=== PATIENT | male | born 1990 | race Caucasian/White ===

== ENCOUNTER 2019-06-07 18:47 | Emergency (ER) | payer BC ==
[2019-06-07 19:28] VITALS: PULSE 64
--- NOTE | 2019-06-07 19:34 | ED ---
General Adult HPI - General Chief complaint: Arrhythmia/Palpitations Stated complaint: defibrillator going off Time Seen by Provider: 06/07/19 18:56 Source: patient Mode of arrival: ambulatory Limitations: no limitations - History of Present Illness Initial comments: Dictation was produced using [employer] dictation software. please excuse any grammatical, word or spelling errors. Chief Complaint: 28-year-old male past medical history hypertrophic cardiomyopathy presents with buzzing noise coming from his AICD History of Present Illness: 28-year-old male he has past medical history of hypertrophic cardiomyopathy. Patient has AICDin 2010. Patient states that he heard his AICD making a buzzing noise. He states it lasted for couple seconds. When away. Patient then had another episode where he noted that there was a buzzing noise. Patient states he had some minor palpitations today. Patient has no complaints at this time. The ROS documented in this emergency department record has been reviewed and confirmed by me. Those systems with pertinent positive or negative responses have been documented in the HPI. All other systems are other negative and/or noncontributory. PHYSICAL EXAM: General Impression: Alert and oriented x3, not in acute distress HEENT: Normocephalic atraumatic, extra-ocular movements intact, pupils equal and reactive to light bilaterally, mucous membranes moist. Cardiovascular: Heart regular rate and rhythm, S1&S2 audible, no murmurs, rubs or gallops Chest: Lungs clear to auscultation bilaterally, no rhonchi, no wheeze, no rales Abdomen: Bowel sounds present, abdomen soft, non-tender, non-distended, no organomegaly Musculoskeletal: Pulses present and equal in all extremities, no peripheral edema Motor: no focal deficits noted Neurological: CN II-XII grossly intact, no focal motor or sensory deficits noted Skin: Intact with no visualized rashes Psych: Normal affect and mood ED course: 28-year-old male presents with buzzing noise coming from AICD. Upon arrival are within acceptable limits. No old EKG for comparison. EKG shows diffuse ST depressions. There is ST depression and high lateral and mid and lateral precordial leads. There is questionable ST elevations in V1 and V2 and lead 3. Patient has no chest pain, no shortness of breath no numbness tingling or paresthesias in the upper extremities or shoulders. EKG was concerning. Discussed patient case immediately with Dr. Villagran who reviewed the EKG. Dr. Villagran was able to track down an old EKG from his office. He states that his EKG is unchanged as secondary to his hypertrophic cardiomyopathy. No concern fo r ACS per cardiology. Laboratory evaluation obtained. CBC, coag panel, metabolic panel is unremarka ble. Troponin 0.015. X-rays nonacute. AICD was interrogated. Dr. Villagran was at bedside and evaluated patient. Dr. Villagran requested patient be discharged follow-up with his office. She'll observe the emergency room for couple hours with stable medical condition. He has no complete at this time. Patient understands that he should follow-up with solar fabrication technician. Return parameters discussed. EKG interpretation: Ventricular rate denies 72, normal sinus rhythm,. Interval 138, QS 98, QTc 446. There are T-wave inversions in high lateral leads, V3 to V6. - Related Data Home Medications Medication Instructions Recorded Confirmed Metoprolol Succinate [Toprol XL] 100 mg PO DAILY 11/17/14 11/20/14 Allergies Allergy/AdvReac Type Severity Reaction Status Date / Time No Known Allergies Allergy Verified 11/17/14 09:06 Review of Systems ROS Statement: Those systems with pertinent positive or pertinent negative responses have been documented in the HPI. ROS Other: All systems not noted in ROS Statement are negative. Past Medical History Additional Past Medical History / Comment(s): SEE DR VILLAGRAN H&P, Defibrillator placed 2010 History of Any Multi-Drug Resistant Organisms: None Reported Past Surgical History: AICD, Cardiac Ablation Past Anesthesia/Blood Transfusion Reactions: No Reported Reaction Type of Cardiac Device: AICD Device Placement Date:: 2010 Past Psychological History: No Psychological Hx Reported Smoking Status: Current every day smoker Past Alcohol Use History: Occasional Past Drug Use History: None Reported - Past Family History Brother(s) Family Medical History: Cancer Additional Family Medical History / Comment(s): TESTICULAR General Exam Limitations: no limitations Course Vital Signs 06/07/19 06/07/19 18:52 19:27 Temperature 98.2 F 97.6 F Pulse Rate 71 64 Respiratory 18 18 Rate Blood Pressure 150/82 136/88 O2 Sat by Pulse 98 98 Oximetry Medical Decision Making - Lab Data Result diagrams: 06/07/19 19:19 06/07/19 19:19 Lab Results 06/07/19 06/07/19 06/07/19 Range/Units 19:19 19:19 19:19 WBC 10.4 (3.8-10.6) k/uL RBC 5.38 (4.30-5.90) m/uL Hgb 16.3 (13.0-17.5) gm/dL Hct 47.2 (39.0-53.0) % MCV 87.8 (80.0-100.0) fL MCH 30.3 (25.0-35.0) pg MCHC 34.5 (31.0-37.0) g/dL RDW 12.0 (11.5-15.5) % Plt Count 221 (150-450) k/uL PT 11.0 (9.0-12.0) sec INR 1.0 (<1.2) APTT 26.5 (22.0-30.0) sec Sodium 140 (137-145) mmol/L Potassium 3.8 (3.5-5.1) mmol/L Chloride 106 (98-107) mmol/L Carbon Dioxide 27 (22-30) mmol/L Anion Gap 7 mmol/L BUN 12 (9-20) mg/dL Creatinine 0.96 (0.66-1.25) mg/dL Est GFR (CKD-EPI)AfAm >90 (>60 ml/min/1.73 sqM) Est GFR (CKD-EPI)NonAf >90 (>60 ml/min/1.73 sqM) Glucose 74 (74-99) mg/dL Calcium 9.4 (8.4-10.2) mg/dL Magnesium 1.8 (1.6-2.3) mg/dL Total Bilirubin 0.6 (0.2-1.3) mg/dL AST 28 (17-59) U/L ALT 29 (4-49) U/L Alkaline Phosphatase 68 (38-126) U/L Troponin I (0.000-0.034) ng/mL Total Protein 7.6 (6.3-8.2) g/dL Albumin 4.4 (3.5-5.0) g/dL 06/07/19 Range/Units 19:19 WBC (3.8-10.6) k/uL RBC (4.30-5.90) m/uL Hgb (13.0-17.5) gm/dL Hct (39.0-53.0) % MCV (80.0-100.0) fL MCH (25.0-35.0) pg MCHC (31.0-37.0) g/dL RDW (11.5-15.5) % Plt Count (150-450) k/uL PT (9.0-12.0) sec INR (<1.2) APTT (22.0-30.0) sec Sodium (137-145) mmol/L Potassium (3.5-5.1) mmol/L Chloride (98-107) mmol/L Carbon Dioxide (22-30) mmol/L Anion Gap mmol/L BUN (9-20) mg/dL Creatinine (0.66-1.25) mg/dL Est GFR (CKD-EPI)AfAm (>60 ml/min/1.73 sqM) Est GFR (CKD-EPI)NonAf (>60 ml/min/1.73 sqM) Glucose (74-99) mg/dL Calcium (8.4-10.2) mg/dL Magnesium (1.6-2.3) mg/dL Total Bilirubin (0.2-1.3) mg/dL AST (17-59) U/L ALT (4-49) U/L Alkaline Phosphatase (38-126) U/L Troponin I 0.015 (0.000-0.034) ng/mL Total Protein (6.3-8.2) g/dL Albumin (3.5-5.0) g/dL Disposition Clinical Impression: AICD problem Disposition: HOME SELF-CARE Condition: Good Instructions (If sedation given, give patient instructions): Heart Palpitations (ED) Is patient prescribed a controlled substance at d/c from ED?: No Referrals: Edilberto Villagran MD [STAFF PHYSICIAN] - 1-2 days Time of Disposition: 20:34
[2019-06-07 19:49] LABS: Partial Thromboplastin Time 26.5 sec (22.0-30.0)
--- NOTE | 2019-06-07 19:53 | XR ---
EXAMINATION TYPE: XR chest 2V DATE OF EXAM: 06/07/2019 COMPARISON: 10/11/2011 HISTORY: Dysrhythmia TECHNIQUE: FINDINGS: Heart and mediastinum are normal. Lungs are clear. Diaphragm is normal. Bony thorax is inta ct. There is a left axillary pacemaker with the lead tip in the right ventricle. There are chest lead s. IMPRESSION: No active cardiopulmonary disease. Normal heart. No change.
[2019-06-07 19:55] LABS: ALT 29 U/L (4-49); AST 28 U/L (17-59); African American GFR (CKD) >90 (>60 ml/min/1.73 sqM); Albumin 4.4 g/dL (3.5-5.0); Alkaline Phosphatase 68 U/L (38-126); Anion Gap 7 mmol/L; Blood Urea Nitrogen 12 mg/dL (9-20); Calcium 9.4 mg/dL (8.4-10.2); Carbon Dioxide 27 mmol/L (22-30); Chloride 106 mmol/L (98-107); Glucose 74 mg/dL (74-99); Magnesium 1.8 mg/dL (1.6-2.3); Non-African American GFR(CKD) >90 (>60 ml/min/1.73 sqM); Potassium 3.8 mmol/L (3.5-5.1); Sodium 140 mmol/L (137-145); Total Bilirubin 0.6 mg/dL (0.2-1.3); Total Protein 7.6 g/dL (6.3-8.2)
[2019-06-07 20:00] LABS: HCT 47.2 % (39.0-53.0); HGB 16.3 gm/dL (13.0-17.5); MCH 30.3 pg (25.0-35.0); MCHC 34.5 g/dL (31.0-37.0); MCV 87.8 fL (80.0-100.0); Mean Platelet Volume 7.5; Platelet Count 221 k/uL (150-450); RBC 5.38 m/uL (4.30-5.90); WBC 10.4 k/uL (3.8-10.6)
[2019-06-07 20:34] LABS: Eosinophils # (M) 0.52 k/uL (0-0.7); Lymphocytes # (M) 5.41 k/uL (1.0-4.8); Monocytes # (M) 0.21 k/uL (0-1.0); Neutrophils # (M) 4.26 k/uL (1.3-7.7); Neutrophils % (M) 41 %; Nucleated Red Blood Cells 0 /100 WBC (0-0); Reactive Lymphocytes Present; Total Cells Counted 100
[2019-06-07 20:55] VITALS: BP 134/89; RESP 20; TEMP 98
--- NOTE | 2019-06-08 13:44 | P.CRDCN ---
History of Present Illness History of present illness: This is Dr. REYEZ dictating a consult note on this patient Impression: Unexpected, abnormal sudden rise in high-voltage impedance of the ICD lead, transient Repeated measurements showed fluctuation in the high-voltage impedance from 78- 93 ohms At implant this was a 67 ohms Review of the trend of the impedances, high-voltage, shows a recent slow increase in now with the sudden spike, transient Pacing impedance is stable Pacing threshold and sensing stable No noise detection Chest x-ray did not show any obvious fracture of the lead Known hypertrophic adenopathy with mid LV obstruction and abnormal cardiac MRI with significant one room of delayed enhancement Status post ICD implantation many years back. ICD has been functioning normally so far Plan: The high impedance alarm has been turned off We will schedule a DFT cinefluoroscopy and venography early next week Continue beta blockers Patient was instructed that if he heard any other alarm he's come back to the [facility] immediately History of present illness: Patient had an alarm late this afternoon and it took him a while to realize that his ICD was beeping He came to the hospital to get this evaluated He has no chest discomfort no dizziness lightheadedness He does complain of brief palpitations but no loss of consciousness He did not have any ICD shocks Review of systems No fever chills or rigors No cough phlegm or expectoration No nausea vomiting or diarrhea No hematuria dysuria No muscular skeletal complaints No neurologic complaints No skin lesions On examination Vitals afebrile 98.0F, pulse rate in the 60s and 70s, normal respirations Blood pressure 134/89 mmHg pulse ox normal Breath sounds are clear no rhonchi no crackles no adventitious sounds Normal heart sounds normal S1 normal S2 no clear-cut audible murmur Abdomen soft nontender Extremity is warm edema No JVD Review of data ICD interrogation was performed. Sudden spike in the high voltage impedance to 200 ohms was detected Please see full ICD interrogation and reprogramming dictation Labs are reviewed hemoglobin 16.3, white count 10.4, platelet count 221 Sodium 140, potassium 3.8, BUN 12 and creatinine 0.96 Normal troponin Past Medical History Additional Past Medical History / Comment(s): SEE DR REYEZ H&P, Defibrillator placed 2010 History of Any Multi-Drug Resistant Organisms: None Reported Past Surgical History: AICD, Cardiac Ablation Past Anesthesia/Blood Transfusion Reactions: No Reported Reaction Type of Cardiac Device: AICD Device Placement Date:: 2010 Past Psychological History: No Psychological Hx Reported Smoking Status: Current every day smoker Past Alcohol Use History: Occasional Past Drug Use History: None Reported - Past Family History Brother(s) Family Medical History: Cancer Additional Family Medical History / Comment(s): TESTICULAR Medications and Allergies Home Medications Medication Instructions Recorded Confirmed Type Metoprolol Succinate [Toprol XL] 100 mg PO DAILY 11/17/14 11/20/14 History Allergies Allergy/AdvReac Type Severity Reaction Status Date / Time No Known Allergies Allergy Verified 11/17/14 09:06 Physical Exam Vitals: Vital Signs Temp Pulse Resp BP Pulse Ox 06/07/19 20:54 98.0 F 64 20 134/89 98 06/07/19 19:27 97.6 F 64 18 136/88 98 06/07/19 18:52 98.2 F 71 18 150/82 98 Intake and Output 06/07/19 06/08/19 06/08/19 22:59 06:59 14:59 Other: Weight 102.058 kg Results 06/07/19 19:19 06/07/19 19:19 Cardiac Enzymes 06/07/19 06/07/19 Range/Units 19:19 19:19 AST 28 (17-59) U/L Troponin I 0.015 (0.000-0.034) ng/mL Coagulation 06/07/19 Range/Units 19:19 PT 11.0 (9.0-12.0) sec APTT 26.5 (22.0-30.0) sec CBC 06/07/19 Range/Units 19:19 WBC 10.4 (3.8-10.6) k/uL RBC 5.38 (4.30-5.90) m/uL Hgb 16.3 (13.0-17.5) gm/dL Hct 47.2 (39.0-53.0) % Plt Count 221 (150-450) k/uL Comprehensive Metabolic Panel 06/07/19 Range/Units 19:19 Sodium 140 (137-145) mmol/L Potassium 3.8 (3.5-5.1) mmol/L Chloride 106 (98-107) mmol/L Carbon Dioxide 27 (22-30) mmol/L BUN 12 (9-20) mg/dL Creatinine 0.96 (0.66-1.25) mg/dL Glucose 74 (74-99) mg/dL Calcium 9.4 (8.4-10.2) mg/dL AST 28 (17-59) U/L ALT 29 (4-49) U/L Alkaline Phosphatase 68 (38-126) U/L Total Protein 7.6 (6.3-8.2) g/dL Albumin 4.4 (3.5-5.0) g/dL Intake and Output 06/07/19 06/08/19 06/08/19 22:59 06:59 14:59 Other: Weight 102.058 kg 06/07/19 19:19 06/07/19 19:19
--- NOTE | 2019-06-08 13:51 | P.PCN ---
Preoperative Diagnosis: He is a [employer] single-chamber ICD, protect RVR [id number] Battery voltage 2.91 Pacing impedance 418 ohms Defibrillation impedance 70 ohms but with repeat measurements it would range from 70-93 ohms R waves 10.5 mV Thresholds stable The high voltage impedance has shown a sudden spike up to 200 ohms resulting in activation of ICD alarm Variability in high-voltage impedance noted from 70-93 ohms Stable pacing impedances No noised ejection No inappropriate ICD shocks The high impedance alarm was turned off No further changes were made Plan DFT testing under anesthesia cinefluoroscopy and venography
== END 2019-06-07 20:54 | disposition home or self-care (01) ==
LOC: EC 18:47
DX: T82.897A Other specified complication of cardiac prosthetic devices, implants and grafts, initial encounter (principal); I42.2 Other hypertrophic cardiomyopathy; R94.31 Abnormal electrocardiogram [ECG] [EKG]; R00.2 Palpitations; F17.200 Nicotine dependence, unspecified, uncomplicated; Z79.899 Other long term (current) drug therapy; Z95.810 Presence of automatic (implantable) cardiac defibrillator; Z98.890 Other specified postprocedural states
CPT/HCPCS: 36415; 71046; 80053; 83735; 84484; 85025; 85610; 85730; 93005; 99285

== ENCOUNTER 2019-06-13 06:04 | Day surgery (SDC) | payer BC ==
[2019-06-11 11:26] VITALS: BMI 30.7
[2019-06-13] MEDS ORDERED: SODIUM CHLORIDE 0.9% 1,000 ML IV SCH (06:11)
[2019-06-13 06:32] VITALS: RESP 16; TEMP 98
[2019-06-13] MEDS ORDERED: PROPOFOL 10 MG/ML 20 ML VIAL IV ONE (07:18)
[2019-06-13] MEDS ORDERED: fentaNYL (PF) 50 MCG/ML 2 ML AMP ONE (07:18)
[2019-06-13] MEDS ORDERED: MIDAZOLAM 2 MG/2 ML VIAL ONE (07:18)
[2019-06-13] MEDS ORDERED: IOPAMIDOL-250 50ML BTL IV ONE (07:36)
[2019-06-13] MEDS ORDERED: SODIUM CHLORIDE 0.9% 500 ML IV ONE (08:00)
--- NOTE | 2019-06-13 08:55 | P.PCN ---
Preoperative Diagnosis: Diagnosis Abnormal ICD lead function Procedure Cinefluoroscopy of the ICD lead him a single coil was performed. No fractures no breaks noted on cinefluoroscopy Left upper extremity venogram 15 mL of dye injected in the left upper extremity. Patent axillary and left subclavian and innominate venous systems Defibrillation level test A shock and T wave protocol was used to induce ventricular fibrillation. This is adequately and appropriately detected at least sensitivity and successfully internally defibrillated with 10 J shock 10 J delivered, charge time 2 seconds, shocking impedance 68 ohms Interrogation of the electrograms revealed post shock noise in the can-RV coil electrograms. Noise is also detected during ventricular fibrillation The device was then programmed for VT and VF therapy sensitivity was reprogrammed to normal settings Along for the shocking impedance was turned off Plan Add a detailed discussion with the patient regarding the rising impedance. The shocking impedance fluctuate and we got one reading of 105 ohms. Recently shocking impedance is up to 200 ohms have been detected. This change i s recent and started in April I had a very detailed discussion with patient regarding the problem this ICD lead. This represents early failure of the l specifically for the shocking coil. In the long run this device comes unreliable and therefore a new ICD has to be implanted I discussed the options of implanting an internal ICD with a single coil versus a subcutaneous ICD The pros and cons of each were discussed in detail I would recommend implantation subcutaneous ICD but I would n remove his current ICD generator. I discussed the pros and cons of laser lead extraction. 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 I would like to leave this option open for the future and having a patent vein would be important in the long run in case of any future issues I will schedule a separate days ICD implant within the next one month At this time the defibrillator is functioning effectively
[2019-06-13 09:05] VITALS: BP 118/72; PULSE 65
== END 2019-06-13 09:05 | disposition home or self-care (01) ==
LOC: CATHEP 06:04
PROVIDERS: ATTEND Internal Medicine Clinical Cardiac Electrophysiology
DX: T82.190A Other mechanical complication of cardiac electrode, initial encounter (principal); I42.1 Obstructive hypertrophic cardiomyopathy; I47.1 Supraventricular tachycardia; I47.2 Ventricular tachycardia; I10 Essential (primary) hypertension; F17.210 Nicotine dependence, cigarettes, uncomplicated; Z79.899 Other long term (current) drug therapy; Z95.810 Presence of automatic (implantable) cardiac defibrillator; Z90.89 Acquired absence of other organs; Z96.22 Myringotomy tube(s) status
CPT/HCPCS: 93642; 75820; J2250; J3010; J2704; Q9966; 76000

== ENCOUNTER 2019-07-18 09:11 | Day surgery (SDC) | payer BC ==
[2019-07-16 09:47] VITALS: BMI 30.7
[~2019-07-18 09:11] MED LIST: LIDOCAINE 1% 20 ML VIAL (10MG/ML) FOR IV START INTRADERMA PRN; ceFAZolin 1,000 MG in SODIUM CHLORIDE 0.9% IRRIGATIO 250 ML IRRIGATION ONE
[2019-07-18] MEDS ORDERED: SODIUM CHLORIDE 0.9% 1,000 ML IV ONE (09:17)
[2019-07-18] MEDS ORDERED: ONDANSETRON 4 MG/2 ML VIAL ONE (10:09)
[2019-07-18] MEDS ORDERED: MIDAZOLAM 2 MG/2 ML VIAL ONE (10:09)
[2019-07-18] MEDS ORDERED: ROCURONIUM BROMIDE 10 MG/ML 5 ML VIAL IV ONE (10:09)
[2019-07-18] MEDS ORDERED: GLYCOPYRROLATE 0.2 MG/ML 2 ML VIAL ONE (10:09)
[2019-07-18] MEDS ORDERED: PROPOFOL 10 MG/ML 20 ML VIAL IV ONE (10:09)
[2019-07-18] MEDS ORDERED: DEXAMETHASONE SOD PHOS (MDV) 100 MG/10 ML VIAL ONE (10:09)
[2019-07-18] MEDS ORDERED: SUCCINYLCHOLINE CHLORIDE 100 MG/5 ML SYR IV ONE (10:09)
[2019-07-18] MEDS ORDERED: NEOSTIGMINE 1 MG/ML 10 ML VIAL ONE (10:09)
[2019-07-18] MEDS ORDERED: PHENYLEPHRINE-0.9% NACL SYG 1 MG/10 ML SYRINGE ONE (10:09)
[2019-07-18] MEDS ORDERED: fentaNYL (PF) 50 MCG/ML 2 ML AMP ONE (10:09)
[2019-07-18] MEDS ORDERED: LIDOCAINE 1% INJ 10MG/ML (20 ML MDV) ONE ×2 (10:47→10:48)
[2019-07-18] MEDS ORDERED: LIDOCAINE 1% INJ 10MG/ML (20 ML MDV) SQ ONE (11:34)
[2019-07-18] MEDS: LIDOCAINE 1% INJ 10MG/ML (20 ML MDV) SQ ONE ×2 (11:47→12:17)
[2019-07-18] MEDS ORDERED: ACETAMINOPHEN TAB 325 MG TAB PO PRN (13:29)
[2019-07-18] MEDS ORDERED: ACETAMINOPHEN IV (For NPO) 1,000 MG in EMPTY BAG 1 BAG IVPB ONE (13:29)
[2019-07-18] MEDS ORDERED: CALCIUM CARBONATE 500 MG CHEWABLE PO PRN (13:34)
[2019-07-18] MEDS: HYDROmorphone 1 MG/ML 1 ML SYRINGE IVP ONE ×2 (14:55→15:05)
[2019-07-18] MEDS: SODIUM CHLORIDE 0.9% 1,000 ML IV SCH (14:57)
[2019-07-18] MEDS: LACTATED RINGERS 1,000 ML IV SCH ×2 (15:14→16:32)
[2019-07-18] MEDS: HYDROcodone/APAP 5-325MG 1 EACH TAB PO PRN (16:46)
[2019-07-19] MEDS: SODIUM CHLORIDE 0.9% 1,000 ML IV SCH (03:54)
--- NOTE | 2019-07-19 05:54 | CE ---
CARDIAC ELECTROPHYSIOLOGY REPORT This is a 28-year-old male patient with known hypertrophic cardiomyopathy who has a single-chamber ICD, interval that was implanted many years back. He had a sudden increase in his shocking impedance to greater than 200 ohms and therefore a subcutaneous ICD was recommended. The internal ICD will be turned off thereafter in terms of his tachy therapies, but eliane pacing will continue as a backup. The lead extraction will be considered at a later date. The patient is brought to the EP lab in a fasting state. Written informed consent was obtained prior to the procedure. IV antibiotics were administered. Procedure was performed under general anesthesia. The anterior chest and the lateral chest were prepped per protocol. The dummy device and the lead were then placed on the chest after prepping and fluoroscopically, the best position for implantation was determined and marked on the skin. A 3-incision technique was used. Subfascial pocket was made on the lateral wall, infra- axillary and the final position the ICD generator was seated lateral/posterolaterally and secured at 2 sites with 2 nonabsorbable sutures. The lead was tunneled per protocol and secured above the xiphoid as well as in the upper end of the sternum. Once the lead was secured and the position rechecked on fluoroscopy, it was connected to device and the device was secured posterolaterally. An excellent position of the leads was noted. Thereafter, the wound was closed. Air was removed as far as possible from the pocket and ICD testing was performed. ICD testing was performed. Ventricular fibrillation was induced and this was successfully detected and defibrillated externally with 65 joule shock. Shocking impedance 81 ohms. The shock polarity was standard (primary). The 3 wounds were then completely closed in 3 layers and completely closed and dressed per protocol. The patient tolerated the procedure well without any acute complications. RESULT: 1. Successful implantation of subcutaneous ICD in this young male with known hypertrophic cardiomyopathy with a very abnormal cardiac MRI. He has mid systolic obstruction. 2. DFT at 65 joule, shock impedance 81 ohms. PLAN: 1. IV antibiotics. 2. Avoid strenuous exercises, ice skating and gym work for at least 6 to 8 weeks. MMODL / IJN: [id number] /
[2019-07-19 07:58] VITALS: BP 126/67; PULSE 84; RESP 18; TEMP 97.8
[2019-07-19] MEDS: HYDROcodone/APAP 5-325MG 1 EACH TAB PO PRN (08:54)
[2019-07-19] MEDS ORDERED: METOPROLOL SUCCINATE (ER) 100 MG TAB.ER.24H PO SCH (09:00)
--- NOTE | 2019-07-23 23:38 | DS ---
DISCHARGE SUMMARY Freddie Casanova is a 28-year-old male patient who has hypertrophic cardiomyopathy, mid LV obstruction, whose internal single-chamber ICD has shown a sudden rise in the shocking impedance to greater than 200. In view of the unreliability of this device in the long run, a subcutaneous ICD was implanted. He underwent successful implantation of subcutaneous ICD with DFT at 65 joules which was successful. Today he feels well at discharge. He has some soreness in the site, but there is no hematoma, no significant bruising. He is not dizzy or lightheaded. He has been ambulating in the hallways. Heart sounds S1, S2 are normal. No murmurs or gallops or rub. Breath sounds are clear. No JVD. Abdomen is soft. Extremities are warm. No edema. Vitals are stable. All instructions regarding the do's and don'ts following subcutaneous ICD were given in detail. This was also explained to the patient's family. PLAN: Continue beta blockers and follow up in the office in 5 days for an ICD check. MMODL / IJN: [id number] /
== END 2019-07-19 10:07 | disposition home or self-care (01) ==
LOC: CATHEP 09:11 → 1SOBS 13:35 → CATHEP 07-19 10:07
PROVIDERS: ATTEND Internal Medicine Clinical Cardiac Electrophysiology
DX: T82.198A Other mechanical complication of other cardiac electronic device, initial encounter (principal); Z95.810 Presence of automatic (implantable) cardiac defibrillator; I42.1 Obstructive hypertrophic cardiomyopathy; I47.1 Supraventricular tachycardia; I10 Essential (primary) hypertension; F17.210 Nicotine dependence, cigarettes, uncomplicated; Z79.899 Other long term (current) drug therapy; Z91.89 Other specified personal risk factors, not elsewhere classified
CPT/HCPCS: 33270; C1894; C1769; C1722; C1896; J2250; J2710; J0690; J2405; J2001; J3010; J1170; J1100; J0131; J2370; J0330; J2704; 93641

== ENCOUNTER 2019-08-09 19:20 | Emergency (ER) | payer BC ==
[2019-08-09 19:42] VITALS: BP 116/69; PULSE 77; RESP 18; TEMP 98.2
--- NOTE | 2019-08-09 20:05 | ED ---
General Adult HPI - General Chief complaint: Wound/Laceration Stated complaint: Open Surgical Wound Time Seen by Provider: 08/09/19 19:34 Source: patient, RN notes reviewed, old records reviewed Mode of arrival: ambulatory Limitations: no limitations - History of Present Illness Initial comments: 28-year-old male history of hypertrophic cardiomyopathy 3 weeks postop AICD implantation. Patient noticed that his story no incision had opened approximately 24 hours ago. He was evaluated by the nurse practitioner covering for cardiology started on Bactrim but has been unable to fill this medication today because the pharmacy had not prepared yet. He has had no fever or chills. He notes some minimal drainage at the site. No chest pain or dyspnea. Patient is otherwise asymptomatic. I was able to discuss case with the nurse practitioner covering for Dr. Villagran, and recommendations were given. - Related Data Home Medications Medication Instructions Recorded Confirmed Metoprolol Succinate [Toprol XL] 100 mg PO DAILY 11/17/14 07/18/19 Calcium Carbonate [Tums] 500 mg PO DIRECTED PRN 07/16/19 07/18/19 Previous Rx's Medication Instructions Recorded Cephalexin [Keflex] 500 mg PO QID #20 cap 08/09/19 Allergies Allergy/AdvReac Type Severity Reaction Status Date / Time No Known Allergies Allergy Verified 08/09/19 19:42 Review of Systems ROS Statement: Those systems with pertinent positive or pertinent negative responses have been documented in the HPI. ROS Other: All systems not noted in ROS Statement are negative. Past Medical History Past Medical History: GERD/Reflux Additional Past Medical History / Comment(s): HYPERTROPHIC CARDIOMYOPATHY, AICD, SEE CARDIOLOGY H & P., History of Any Multi-Drug Resistant Organisms: None Reported Past Surgical History: AICD, Cardiac Ablation Additional Past Surgical History / Comment(s): TUBES IN EARS X2, 2 different difibs placed, Past Anesthesia/Blood Transfusion Reactions: Postoperative Nausea & Vomiting (PONV) Type of Cardiac Device: AICD Device Placement Date:: 2011 Past Psychological History: No Psychological Hx Reported Smoking Status: Current every day smoker Past Alcohol Use History: Occasional Past Drug Use History: None Reported - Past Family History Brother(s) Family Medical History: Cancer Additional Family Medical History / Comment(s): TESTICULAR General Exam Limitations: no limitations Course Vital Signs 08/09/19 19:37 Temperature 98.2 F Pulse Rate 77 Respiratory 18 Rate Blood Pressure 116/69 O2 Sat by Pulse 98 Oximetry Procedures - Laceration Laceration #1 Consent Obtained: verbal consent Indication: laceration Site: chest Size (cm): 1 Description: linear Depth: simple, single layer Pre-repair: wound explored, deep structures intact Type of Sutures: other (silk) Size of Sutures: 3-0 Technique: simple, interrupted Patient Tolerated Procedure: well Additional Comments: Wound was cleansed with chlorhexidine, 1 simple interrupted silk sutures placed. Medical Decision Making - Medical Decision Making 28-year-old male with wound dehiscence. Opening is very small, approximately 1 cm area mid sternum with no significant purulence, minimal surrounding erythema. Recommendations were to remove the suture, replace with silk suture and placed dry bandage over the dehiscence. As well as adding additional antibiotic coverage for this patient. I did follow these recommendations given by cardiology, 1 3-0 silk suture was placed. Wound was reapproximated, this was no t tightly closed to allow for potential infection and incisional drainage. Patient will be started on Keflex in addition to Bactrim and will follow-up for wound evaluation with cardiology. Disposition Clinical Impression: Surgical wound dehiscence Disposition: HOME SELF-CARE Condition: Good Instructions (If sedation given, give patient instructions): Wound Dehiscence (ED) Prescriptions: Cephalexin [Keflex] 500 mg PO QID #20 cap Is patient prescribed a controlled substance at d/c from ED?: No Referrals: None,Stated [Primary Care Provider] - 1-2 days Edilberto Villagran MD [STAFF PHYSICIAN] - 1-2 days Time of Disposition: 20:04
== END 2019-08-09 20:20 | disposition home or self-care (01) ==
LOC: EC 19:20
DX: T81.31XA Disruption of external operation (surgical) wound, not elsewhere classified, initial encounter (principal); I42.2 Other hypertrophic cardiomyopathy; F17.200 Nicotine dependence, unspecified, uncomplicated; Z79.899 Other long term (current) drug therapy; Z95.810 Presence of automatic (implantable) cardiac defibrillator; Y83.8 Other surgical procedures as the cause of abnormal reaction of the patient, or of later complication, without mention of misadventure at the time of the procedure
CPT/HCPCS: 12001; 99283

== ENCOUNTER 2019-08-19 09:43 | Day surgery (SDC) | payer BC ==
[2019-08-16 10:05] VITALS: BMI 30.7
[~2019-08-19 09:43] MED LIST changes: -LIDOCAINE 1% 20 ML VIAL (10MG/ML) FOR IV START INTRADERMA PRN; +SODIUM CHLORIDE 0.9% 1,000 ML in EMPTY BAG 1 BAG IV ONE; +VANCOMYCIN 1,000 MG in SODIUM CHLORIDE 0.9% 250 ML IVPB ONE; -ceFAZolin 1,000 MG in SODIUM CHLORIDE 0.9% IRRIGATIO 250 ML IRRIGATION ONE
[2019-08-19] MEDS ORDERED: SODIUM CHLORIDE 0.9% 500 ML 500 ML IV ONE (10:05)
[2019-08-19 10:19] VITALS: RESP 16; TEMP 98
[2019-08-19] MEDS ORDERED: VANCOMYCIN IRRIGATION STA (11:08)
[2019-08-19] MEDS ORDERED: SODIUM CHLORIDE 0.9% IRRIGATION STA (11:08)
[2019-08-19] MEDS ORDERED: LIDOCAINE 1% INJ 10MG/ML (20 ML MDV) ONE (11:20)
[2019-08-19] MEDS ORDERED: MIDAZOLAM 2 MG/2 ML VIAL IV ONE (11:35)
[2019-08-19] MEDS ORDERED: LIDOCAINE 1% INJ 10MG/ML (20 ML MDV) SQ ONE (11:39)
[2019-08-19] MEDS ORDERED: PIPERACILLIN-TAZOBACTAM 3.375 GM in SODIUM CHLORIDE 0.9% 100 ML IVPB STA (12:38)
[2019-08-19] MEDS ORDERED: ACETAMINOPHEN TAB 325 MG TAB PO PRN (12:38)
--- NOTE | 2019-08-19 12:41 | P.PCN ---
Preoperative Diagnosis: Diagnosis Surgical wound dehiscence, superficial, multiple No Response to oral antibiotics Procedure Under conscious sedation the chest was prepped and draped per protocol IV antibiotics were administered, IV vancomycin The upper sternal wound was debrided. A long retaining suture, subcuticular was removed. No pus noted The wound was closed secondarily with nylon sutures The lower sternal wound showed early signs of dehiscence at the rightward edge of the wound A tiny incision was made exactly of the previous surgical site and the retaining suture was removed the edges were debrided The wound was closed with a single nylon suture The lower end of the lateral wound also showed signs of early dehiscence An incision was made exactly over this incision, about 1 cm An unabsorbed suture was removed The wound edges were freshened 3 nylon sutures applied and the wound was closed Tension relieving sutures were first applied, then the nylon sutures applied and the tension retaining sutures were then removed Patient underwent EP procedure under conscious sedation/moderate sedation, monitoring of the level of consciousness and physiologic parameters including but not limited to vital signs and oxygenation. Patient tolerated the procedure well without any acute complications. Start time: 1138 Stop time: 1221 43 minutes of consciousness sedation
[2019-08-19 13:34] VITALS: BP 124/67; PULSE 64
== END 2019-08-19 14:02 | disposition home or self-care (01) ==
LOC: CATHEP 09:43
PROVIDERS: ATTEND Internal Medicine Clinical Cardiac Electrophysiology
DX: T81.31XA Disruption of external operation (surgical) wound, not elsewhere classified, initial encounter (principal); T82.190A Other mechanical complication of cardiac electrode, initial encounter; I10 Essential (primary) hypertension; F17.210 Nicotine dependence, cigarettes, uncomplicated; I42.2 Other hypertrophic cardiomyopathy; I42.1 Obstructive hypertrophic cardiomyopathy; Z79.899 Other long term (current) drug therapy
CPT/HCPCS: 33222; J2543; J2250; J3370; J2001

== ENCOUNTER → 2021-10-12 | Outpatient (CLI) | payer BC ==
[2021-10-12 10:43] LABS: HCT 45.5 % (39.6-50.0); HGB 15.7 g/dL (13.0-17.0); MCH 30.6 pg (27.0-32.0); MCHC 34.5 g/dL (32.0-37.0); MCV 88.7 fL (80.0-97.0); Mean Platelet Volume 9.9 fL (9.5-12.2); NRBC Per 100 WBC 0 /100 WBCS (0.0-0.0); Platelet Count 216 X 10*3/uL (140-440); RBC 5.13 X 10*6/uL (4.40-5.60); RDW 12.8 % (11.5-14.5); WBC 7.02 X 10*3/uL (4.50-10.00)
[2021-10-12 10:54] LABS: African American GFR (CKD) 127.7 (60.0-200.0); Anion Gap 9.9 mmol/L (10.00-18.00); Blood Urea Nitrogen 13.4 mg/dL (9.0-27.0); Non-African American GFR(CKD) 110.2 (60.0-200.0); Potassium 4.3 mmol/L (3.5-5.5)
== END | disposition home or self-care (01) ==
LOC: LABPAT 06:58
PROVIDERS: ATTEND Internal Medicine Clinical Cardiac Electrophysiology
DX: Z01.812 Encounter for preprocedural laboratory examination (principal); I42.2 Other hypertrophic cardiomyopathy
CPT/HCPCS: 80051; 82565; 84520; 85027

== ENCOUNTER 2021-10-18 07:51 | Day surgery (SDC) | payer BC ==
[2021-10-14 17:50] VITALS: BMI 31.4
[~2021-10-18 07:51] MED LIST changes: +LACTATED RINGERS 1,000 ML IV SCH; +SODIUM CHLORIDE 0.9% 1,000 ML IV SCH; -SODIUM CHLORIDE 0.9% 1,000 ML in EMPTY BAG 1 BAG IV ONE; -VANCOMYCIN 1,000 MG in SODIUM CHLORIDE 0.9% 250 ML IVPB ONE
[2021-10-18] MEDS ORDERED: SODIUM CHLORIDE 0.9% 500 ML 500 ML IV ONE (08:05)
[2021-10-18 08:19] VITALS: RESP 16; TEMP 98.4
[2021-10-18] MEDS ORDERED: PROPOFOL 10 MG/ML 20 ML VIAL IV ONE (13:20)
[2021-10-18 15:08] VITALS: PULSE 64
[2021-10-18 15:11] VITALS: BP 125/68
--- NOTE | 2021-10-18 19:32 | P.EPPROC ---
- EP Procedure Note Electrophysiology Procedure Note: Diagnosis Hypertrophic cardio myopathy, mid cavitary obstruction Status post single chamber ICD implant when he is back Fracture of the interatrial ICD lead Subcutaneous ICD in situ Subcutaneous ICD lead on advisory Patient got for defibrillation level testing Ventricular fibrillation induced under anesthesia Successfully detected with a secondary sensing configuration Successful defibrillation at 65 J Device programmed with therapy turned on, shocks 1 220, conditional shock zone 200 beats a minute Smart past on Gain sitting 1X Sensing configuration secondary Shocking impedance 101 ohms Shock polarity standard Patient tolerated the procedure well without any acute complications Normal subcutaneous ICD function The patient is being referred for possible laser lead extraction of the internal ICD lead Subcutaneous ICD functioning normally Continue beta blockers maximal tolerated dose Mid cavitary gradient is mild
== END 2021-10-18 14:45 | disposition home or self-care (01) ==
LOC: CATHEP 07:51
PROVIDERS: ATTEND Internal Medicine Clinical Cardiac Electrophysiology
DX: I42.2 Other hypertrophic cardiomyopathy (principal); I10 Essential (primary) hypertension; J45.909 Unspecified asthma, uncomplicated; F17.200 Nicotine dependence, unspecified, uncomplicated; Z20.822 Contact with and (suspected) exposure to COVID-19; Z95.810 Presence of automatic (implantable) cardiac defibrillator; Z79.899 Other long term (current) drug therapy
CPT/HCPCS: 93642; 87635; J2704